=== PATIENT | male | born 1950 | race Caucasian/White ===

== ENCOUNTER 2021-06-10 05:36 | Inpatient (IN) ==
[2021-06-07 11:28] LABS: Basophils % 0.4 % (0.0-0.8); Eosinophils # 0.2 10*3/uL (0.0-0.87); Eosinophils % 3.8 % (0.00-10.9); Hematocrit 40.4 VOL% (42.0-52.0); Hemoglobin 12.9 GM/DL (14.0-18.0); Immature Granulocytes % 0.4 %; Immature Granulocytes Absolute 0.02 #; Lymphocytes # 1.5 10*3/uL (1.4-4.0); Lymphocytes % 26.8 % (21.2-54.2); Mean Corpuscular HGB Conc 31.9 GM/DL (32-36); Mean Corpuscular Volume 93.5 FL (87-102); Mean Platelet Volume 10.2 FL (9.6-12.0); Monocytes % 11.6 % (1.7-12.7); Platelet Count 182 T/CUMM (130-400); Red Blood Count 4.32 MC/CUMM (3.8-5.5); Red Cell Distribution Width 13.4 % (9.3-17.3); White Blood Count 5.6 T/CUMM (4-12)
[2021-06-07 11:51] LABS: INR 0.9; PT Patient Result 10.5 SECS (10.5-12.0)
[2021-06-07 11:57] LABS: Albumin 3.9 G/DL (3.4-5.0); Bilirubin,Total 0.6 MG/DL (0.20-1.00); Osmolality,Calculated 279.5 MOS/KG (273-304); Potassium 4.8 MMOL/L (3.5-5.1); Total Protein 7.3 G/DL (6.4-8.2)
[2021-06-10] MEDS ORDERED: cefTRIAXone 1,000 MG in SODIUM CHLORIDE 0.9% 100 ML IV ONE (06:00)
[2021-06-10] MEDS ORDERED: ROCURONIUM 50 MG/5 ML VIAL IV ONE ×2 (06:41→09:44)
[2021-06-10] MEDS ORDERED: MIDAZOLAM 2 MG/2 ML VIAL ONE (06:41)
[2021-06-10] MEDS ORDERED: SEVOFLURANE 1 UNIT/15 MINUTE INH ONE ×14 (06:41→09:56)
[2021-06-10] MEDS ORDERED: LIDOCAINE 2% 5 ML VIAL ONE (06:41)
[2021-06-10] MEDS ORDERED: fentaNYL 100 MCG/2 ML VIAL ONE ×2 (06:41→09:54)
[2021-06-10] MEDS ORDERED: propofoL 200 MG/20 ML VIAL IV ONE (06:41)
[2021-06-10] MEDS: LACTATED RINGERS 1,000 ML IV SCH ×2 (06:44→09:46)
[2021-06-10] MEDS ORDERED: ROPIVACAINE 0.5% 30 ML VIAL ONE ×2 (06:47→06:48)
[2021-06-10] MEDS ORDERED: CLINDAMYCIN INJ 900 MG/50 ML PREMIX IV ONE ×2 (06:48→06:54)
[2021-06-10] MEDS ORDERED: ACETAMINOPHEN INJ 1,000 MG/100 ML VIAL IV ONE (07:44)
[2021-06-10] MEDS ORDERED: ePHEDrine 50 MG/ML VIAL ONE (08:06)
[2021-06-10] MEDS ORDERED: LACTATED RINGERS 1,000 ML IV ONE (09:54)
[2021-06-10] MEDS ORDERED: GLYCOPYRROLATE 0.4 MG/2 ML VIAL ONE (11:56)
[2021-06-10] MEDS ORDERED: HYDROmorphone 2 MG/1 ML VIAL IV PRN (12:02)
[2021-06-10] MEDS ORDERED: ONDANSETRON 4 MG/2 ML VIAL IV PRN ×2 (12:02→12:44)
[2021-06-10] MEDS ORDERED: PROMETHAZINE 25 MG/1 ML VIAL IM PRN (12:02)
[2021-06-10] MEDS ORDERED: GLUCAGON 1 MG VIAL IM PRN (12:06)
[2021-06-10] MEDS ORDERED: DEXTROSE 50% 25 GM/50 ML VIAL IV PRN ×2 (12:06→13:47)
[2021-06-10 12:39] LABS: Bacteria,Urine Occasional /HPF (Few); Bilirubin,Urine Negative (Negative); Blood, Urine Negative (Negative); Glucose,Urine (UA) Negative (Negative); Hyaline Casts,Urine 1 /LPF (0-3); Ketones,Urine Negative (Negative); Mucus,Urine Occasional /LPF (Occasional); Nitrite,Urine Negative (Negative); Protein,Urine Negative; Squamous Epithelial Cell,Urine Occasional /HPF (0-10); Urine Appearance CLEAR (Clear); Urine Color Yellow (Yellow); Urine Specific Gravity 1.016 (1.001-1.035); Urine Urobilinogen < 2.0 EU/DL (0.2-1.0)
[2021-06-10] MEDS: HYDROmorphone 2 MG/1 ML VIAL IV PRN ×2 (12:47→12:58)
[2021-06-10 13:06] LABS: Basophils % 0.1 % (0.0-0.8); Eosinophils % 0.3 % (0.00-10.9); Hematocrit 38.5 VOL% (42.0-52.0); Hemoglobin 12.5 GM/DL (14.0-18.0); Immature Granulocytes % 0.6 %; Immature Granulocytes Absolute 0.06 #; Lymphocytes # 0.9 10*3/uL (1.4-4.0); Lymphocytes % 8.8 % (21.2-54.2); Mean Corpuscular HGB Conc 32.5 GM/DL (32-36); Mean Corpuscular Volume 93.4 FL (87-102); Mean Platelet Volume 10.3 FL (9.6-12.0); Neutrophils % 83.2 % (38.7-73.9); Platelet Count 160 T/CUMM (130-400); Red Blood Count 4.12 MC/CUMM (3.8-5.5); Red Cell Distribution Width 13.5 % (9.3-17.3); White Blood Count 10.7 T/CUMM (4-12)
[2021-06-10 13:27] LABS: Calcium 8.1 MG/DL (8.5-10.1); Osmolality,Calculated 276.8 MOS/KG (273-304); Potassium 4.5 MMOL/L (3.5-5.1)
[2021-06-10] MEDS ORDERED: hydrALAZINE 20 MG/1 ML VIAL IV PRN (14:10)
[2021-06-10] MEDS: SODIUM CHLORIDE 0.9% 1,000 ML IV SCH ×2 (14:42→22:35)
[2021-06-10] MEDS: GABAPENTIN 100 MG CAPSULE PO SCH ×2 (16:11→21:26)
[2021-06-10] MEDS: PROPAFENONE 150 MG TABLET PO SCH ×2 (16:15→21:26)
[2021-06-10] MEDS: ACETAMINOPHEN 325 MG TABLET PO SCH ×2 (18:06→18:54)
[2021-06-10] MEDS: INSULIN REGULAR 100 UNIT/ML SUBCUT SCH ×2 (18:39→21:27)
[2021-06-10] MEDS: oxyCODONE/ACETAMINOPHEN 5-325 MG TABLET PO PRN (21:25)
[2021-06-10] MEDS: metFORMIN 500 MG TABLET PO SCH (21:26)
[2021-06-10] MEDS: FAMOTIDINE 20 MG TABLET PO SCH (21:26)
[2021-06-10] MEDS: ALVIMOPAN 12 MG CAPSULE PO SCH (21:26)
[2021-06-11] MEDS: ACETAMINOPHEN 325 MG TABLET PO SCH ×4 (00:53→18:21)
[2021-06-11] MEDS: oxyCODONE/ACETAMINOPHEN 5-325 MG TABLET PO PRN ×3 (01:53→15:11)
[2021-06-11 05:53] LABS: Hematocrit 36.3 VOL% (42.0-52.0); Hemoglobin 11.8 GM/DL (14.0-18.0); Immature Granulocytes % 0.2 %; Immature Granulocytes Absolute 0.02 #; Lymphocytes # 0.5 10*3/uL (1.4-4.0); Lymphocytes % 5.5 % (21.2-54.2); Mean Corpuscular HGB Conc 32.5 GM/DL (32-36); Monocytes % 7.9 % (1.7-12.7); Neutrophils % 86.4 % (38.7-73.9); Platelet Count 169 T/CUMM (130-400); Red Blood Count 3.86 MC/CUMM (3.8-5.5); Red Cell Distribution Width 13.6 % (9.3-17.3); White Blood Count 8.5 T/CUMM (4-12)
[2021-06-11 06:01] LABS: Calcium 7.7 MG/DL (8.5-10.1); Potassium 4.1 MMOL/L (3.5-5.1)
[2021-06-11 06:02] LABS: Calcium 7.8 MG/DL (8.5-10.1); Osmolality,Calculated 278.8 MOS/KG (273-304); Potassium 4.1 MMOL/L (3.5-5.1)
[2021-06-11 06:05] LABS: Ferritin 119.5 ng/mL (26-388)
[2021-06-11] MEDS: SODIUM CHLORIDE 0.9% 1,000 ML IV SCH (06:35)
[2021-06-11] MEDS ORDERED: LOSARTAN 50 MG TABLET PO SCH (09:00)
[2021-06-11] MEDS: INSULIN REGULAR 100 UNIT/ML SUBCUT SCH ×4 (09:18→20:57)
[2021-06-11] MEDS: metFORMIN 500 MG TABLET PO SCH ×2 (09:52→20:55)
[2021-06-11] MEDS: TAMSULOSIN 0.4 MG CAPSULE PO SCH (09:52)
[2021-06-11] MEDS: amLODIPine 10 MG TABLET PO SCH (09:52)
[2021-06-11] MEDS: ALVIMOPAN 12 MG CAPSULE PO SCH ×2 (09:52→20:55)
[2021-06-11] MEDS: PROPAFENONE 150 MG TABLET PO SCH ×3 (09:53→20:56)
[2021-06-11] MEDS: GABAPENTIN 100 MG CAPSULE PO SCH ×3 (09:53→20:55)
[2021-06-11] MEDS: FAMOTIDINE 20 MG TABLET PO SCH ×2 (09:53→20:55)
[2021-06-11] MEDS: DOCUSATE SODIUM 100 MG CAPSULE PO SCH (09:53)
[2021-06-11] MEDS: POLYETHYLENE GLYCOL POWDER 17 GM PACK PO SCH (09:53)
[2021-06-11] MEDS: LACTATED RINGERS 1,000 ML IV SCH (16:48)
[2021-06-12] MEDS: ACETAMINOPHEN 325 MG TABLET PO SCH ×5 (01:08→23:45)
[2021-06-12] MEDS: oxyCODONE/ACETAMINOPHEN 5-325 MG TABLET PO PRN (01:29)
[2021-06-12 06:12] LABS: Basophils % 0.2 % (0.0-0.8); Eosinophils # 0.1 10*3/uL (0.0-0.87); Eosinophils % 0.6 % (0.00-10.9); Hematocrit 34.2 VOL% (42.0-52.0); Immature Granulocytes % 0.5 %; Immature Granulocytes Absolute 0.05 #; Lymphocytes % 10.1 % (21.2-54.2); Mean Corpuscular HGB Conc 32.2 GM/DL (32-36); Mean Corpuscular Volume 92.9 FL (87-102); Mean Platelet Volume 10.2 FL (9.6-12.0); Monocytes % 12.2 % (1.7-12.7); Neutrophils % 76.4 % (38.7-73.9); Platelet Count 149 T/CUMM (130-400); Red Blood Count 3.68 MC/CUMM (3.8-5.5); Red Cell Distribution Width 13.5 % (9.3-17.3); White Blood Count 10.1 T/CUMM (4-12)
[2021-06-12 06:35] LABS: Calcium 7.7 MG/DL (8.5-10.1); Osmolality,Calculated 268.4 MOS/KG (273-304)
[2021-06-12] MEDS: POLYETHYLENE GLYCOL POWDER 17 GM PACK PO SCH (09:00)
[2021-06-12] MEDS: metFORMIN 500 MG TABLET PO SCH ×2 (09:00→20:34)
[2021-06-12] MEDS: amLODIPine 10 MG TABLET PO SCH (09:00)
[2021-06-12] MEDS: TAMSULOSIN 0.4 MG CAPSULE PO SCH (09:01)
[2021-06-12] MEDS: DOCUSATE SODIUM 100 MG CAPSULE PO SCH (09:01)
[2021-06-12] MEDS: FAMOTIDINE 20 MG TABLET PO SCH ×2 (09:01→20:34)
[2021-06-12] MEDS: ASPIRIN EC 81 MG TABLET PO SCH (09:01)
[2021-06-12] MEDS: ALVIMOPAN 12 MG CAPSULE PO SCH ×2 (09:01→20:34)
[2021-06-12] MEDS: GABAPENTIN 100 MG CAPSULE PO SCH ×3 (09:01→20:34)
[2021-06-12] MEDS: PROPAFENONE 150 MG TABLET PO SCH ×3 (09:01→20:34)
[2021-06-12] MEDS: INSULIN REGULAR 100 UNIT/ML SUBCUT SCH ×4 (09:18→20:33)
[2021-06-12] MEDS ORDERED: GLUCAGON 1 MG VIAL IM PRN (10:25)
[2021-06-12] MEDS ORDERED: DEXTROSE 50% 25 GM/50 ML VIAL IV PRN (10:25)
[2021-06-12] MEDS: LACTATED RINGERS 1,000 ML IV SCH (12:57)
[2021-06-13 05:36] LABS: Basophils % 0.2 % (0.0-0.8); Eosinophils # 0.3 10*3/uL (0.0-0.87); Eosinophils % 4.2 % (0.00-10.9); Hematocrit 33.8 VOL% (42.0-52.0); Hemoglobin 11.4 GM/DL (14.0-18.0); Immature Granulocytes % 0.6 %; Immature Granulocytes Absolute 0.05 #; Lymphocytes % 12.1 % (21.2-54.2); Mean Corpuscular HGB Conc 33.7 GM/DL (32-36); Mean Corpuscular Volume 92.9 FL (87-102); Mean Platelet Volume 10.2 FL (9.6-12.0); Monocytes % 14.7 % (1.7-12.7); Neutrophils % 68.2 % (38.7-73.9); Platelet Count 152 T/CUMM (130-400); Red Blood Count 3.64 MC/CUMM (3.8-5.5); Red Cell Distribution Width 13.3 % (9.3-17.3); White Blood Count 8.1 T/CUMM (4-12)
[2021-06-13 06:06] LABS: Calcium 8.1 MG/DL (8.5-10.1); Osmolality,Calculated 278.7 MOS/KG (273-304); Potassium 4.1 MMOL/L (3.5-5.1)
[2021-06-13] MEDS: ACETAMINOPHEN 325 MG TABLET PO SCH ×2 (06:41→13:52)
[2021-06-13] MEDS: LACTATED RINGERS 1,000 ML IV SCH (08:31)
[2021-06-13] MEDS: INSULIN REGULAR 100 UNIT/ML SUBCUT SCH ×2 (09:06→11:25)
[2021-06-13] MEDS: FAMOTIDINE 20 MG TABLET PO SCH (09:08)
[2021-06-13] MEDS: ALVIMOPAN 12 MG CAPSULE PO SCH (09:08)
[2021-06-13] MEDS: amLODIPine 10 MG TABLET PO SCH (09:09)
[2021-06-13] MEDS: TAMSULOSIN 0.4 MG CAPSULE PO SCH (09:09)
[2021-06-13] MEDS: GABAPENTIN 100 MG CAPSULE PO SCH (09:09)
[2021-06-13] MEDS: ASPIRIN EC 81 MG TABLET PO SCH (09:09)
[2021-06-13] MEDS: metFORMIN 500 MG TABLET PO SCH (09:09)
[2021-06-13] MEDS: PROPAFENONE 150 MG TABLET PO SCH (09:09)
[2021-06-13] MEDS: POLYETHYLENE GLYCOL POWDER 17 GM PACK PO SCH (09:12)
[2021-06-13] MEDS: DOCUSATE SODIUM 100 MG CAPSULE PO SCH (09:12)
[2021-06-13 11:27] VITALS: BP 147/70
== END 2021-06-13 14:00 | disposition home or self-care (01) | DRG 657 ==
LOC: N.OR 05:36 → N.SDSINP 05:36 → N.4E 13:21
PROVIDERS: ADMIT Surgery; ATTEND Surgery